=== PATIENT | female | born 1955 | race American Indian/Alaskan Native ===

== ENCOUNTER 2022-01-02 23:18 | Emergency (ER) | payer MEDICARE ==
[2022-01-03] MEDS ORDERED: ACETAMINOPHEN 325 MG TAB PO ONE (02:48)
--- NOTE | 2022-01-03 02:49 | Emergency Department Report ---
ED General Adult HPI - General Chief complaint: Pain General Stated complaint: Left foot/toe pain, muscle cramps, leg swelling Time Seen by Provider: 01/03/22 02:19 Source: patient Mode of arrival: Ambulatory Limitations: No Limitations - History of Present Illness Initial comments: This patient is a 66-year-old female, with a history of possible gout, hypertension, high cholesterol and renal insufficiency. Her plasterer maintenance is Dr. Singh. She had laboratory studies within the past month, and she reports that her "kidney function is a little bit worse." She reports that her plasterer maintenance has increased her diuretic dose. She presents to the ER today with a complaint of diffuse muscular cramping, lower extremity swelling, and left lateral fifth toe pain. She denies additional injuries and complaints. She ambulates at home with a cane, and four-point walker. She reports compliance with her medications -: days(s) Location: left, right, upper extremity, lower extremity Quality: aching, other (Cramping) Consistency: constant, intermittent (Left toe pain increases with palpation and range of motion. It decreases with rest) Improves with: other Worsens with: other - Related Data Previous Rx's Medication Instructions Recorded Last Taken Type Acetaminophen [Non-Aspirin Extra 650 mg PO Q6HR PRN #30 tablet 01/03/22 Unknown Rx Strength] Allergies Allergy/AdvReac Type Severity Reaction Status Date / Time Sulfa (Sulfonamide Allergy Unknown Verified 01/02/22 23:56 Antibiotics) ED Review of Systems ROS: Stated complaint: BODY CRAMPS/LT FOOT PAIN/RT LEG PAIN Other details as noted in HPI Constitutional: denies: fever Eyes: denies: eye discharge ENT: denies: epistaxis Respiratory: denies: cough Cardiovascular: edema Gastrointestinal: denies: abdominal pain Musculoskeletal: arthralgia, myalgia Neurological: denies: weakness ED Past Medical Hx - Medications Home Medications: Home Medications Medication Instructions Recorded Confirmed Last Taken Type Acetaminophen [Non-Aspirin Extra 650 mg PO Q6HR PRN #30 tablet 01/03/22 Unknown Rx Strength] ED Physical Exam - General Limitations: No Limitations General appearance: alert, in no apparent distress, obese - Head Head exam: Present: atraumatic, normocephalic - Eye Eye exam: Present: normal appearance, EOMI. Absent: nystagmus - ENT ENT exam: Present: normal exam, normal orophraynx, mucous membranes moist, normal external ear exam - Neck Neck exam: Present: normal inspection, full ROM. Absent: tenderness, meningismus - Respiratory Respiratory exam: Present: normal lung sounds bilaterally. Absent: respiratory distress, wheezes, rales, rhonchi, stridor, decreased breath sounds - Cardiovascular Cardiovascular Exam: Present: regular rate, normal rhythm, normal heart sounds. Absent: bradycardia, tachycardia, irregular rhythm, systolic murmur, diastolic murmur, rubs, gallop - GI/Abdominal GI/Abdominal exam: Present: soft. Absent: distended, tenderness, guarding, rebound, rigid, pulsatile mass - Extremities Exam Extremities exam: Present: normal inspection, full ROM, tenderness (There is iso lated left lateral fifth toe tenderness. There is no redness, pus or streaking), pedal edema (2+ edema in the bilateral lower extremities), other (There is no long bony tenderness. The muscular compartments are soft. The pelvis is stable). Absent: calf tenderness - Back Exam Back exam: Present: normal inspection. Absent: tenderness, CVA tenderness (R), CVA tenderness (L), muscle spasm, paraspinal tenderness, vertebral tenderness - Neurological Exam Neurological exam: Present: alert, oriented X3, normal gait, other (No facial droop. Tongue midline. Extraocular movements intact bilaterally. Facial sensation intact to light touch in V1, V2, V3 distribution bilaterally. 5 and a 5 strength in 4 extremities. Sensation intact to light touch in 4 extremities.). Absent: motor sensory deficit - Psychiatric Psychiatric exam: Present: normal affect, normal mood - Skin Skin exam: Present: warm, dry, intact, normal color. Absent: rash ED Course Vital Signs 01/02/22 23:36 Temperature 98.2 F Pulse Rate 81 Respiratory 18 Rate Blood Pressure 154/94 O2 Sat by Pulse 97 Oximetry ED Medical Decision Making - Lab Data Result diagrams: 01/03/22 02:57 Vital Signs 01/02/22 23:36 Temperature 98.2 F Pulse Rate 81 Respiratory 18 Rate Blood Pressure 154/94 O2 Sat by Pulse 97 Oximetry Lab Results 01/03/22 Range/Units 02:57 Sodium 138 (137-145) mmol/L Potassium 4.9 (3.6-5.0) mmol/L Chloride 101.8 (98-107) mmol/L Carbon Dioxide 23 (22-30) mmol/L Anion Gap 18 mmol/L BUN 44 H (7-17) mg/dL Creatinine 1.5 H (0.6-1.2) mg/dL Estimated GFR 42 ml/min BUN/Creatinine Ratio 29 % Glucose 163 H (65-100) mg/dL Calcium 9.3 (8.4-10.2) mg/dL Magnesium 1.90 (1.7-2.3) mg/dL Total Bilirubin 0.30 (0.1-1.2) mg/dL AST 22 (5-40) units/L ALT 21 (7-56) units/L Alkaline Phosphatase 102 (35-129) units/L Total Creatine Kinase 256 H (30-135) units/L Total Protein 7.7 (6.3-8.2) g/dL Albumin 4.1 (3.9-5) g/dL Albumin/Globulin Ratio 1.1 % - Radiology Data Radiology results: pending, report reviewed, image reviewed LEFT FIFTH TOE 3 VIEWS INDICATION / CLINICAL INFORMATION: left 5th toe pain. COMPARISON: None available. FINDINGS: BONES / JOINT(S): No acute fracture or subluxation. No significant arthritis. SOFT TISSUES: No significant abnormality. ADDITIONAL FINDINGS: None. IMPRESSION: 1. No acute findings. Signer Name: Rupesh Loja MD Signed: 01/03/2022 3:08 AM Workstation Name: [id number] - Medical Decision Making Differential diagnosis, including but not limited to: Elevated CK, renal insufficiency, hepatic insufficiency, arthritis, sprain, strain, dependent edema Assessment and plan: 66-year-old female, who was afebrile, with reassuring vital signs, presenting with left fifth toe pain, muscular cramps. She is currently taking diuretics. Lung sounds are clear, and she is not hypoxic. She has close outpatient follow-up with primary care and nephrology. She may continue her diuretics. Laboratory studies today unremarkable for emergent findings. She has a known history of renal insufficiency. CK not consistent with rhabdomyolysis X-ray of the left fifth toe shows no fracture or dislocation, and her examination is not consistent with cellulitis, abscess, or infectious pathology. Weightbearing as tolerated, Tylenol for pain, supportive footwear, shiloh tape to left fifth and fourth toe, outpatient follow-up. Does not appear to have an emergent medical condition present at this time. Critical care attestation.: If time is entered above; I have spent that time in minutes in the direct care of this critically ill patient, excluding procedure time. ED Disposition Clinical Impression: Muscle cramp, Toe pain, Dependent edema Disposition: HOME / SELF CARE / HOMELESS Is pt being admited?: No Does the pt Need Aspirin: No Condition: Good Additional Instructions: Please continue current outpatient medications. Patient may take the prescribed acetaminophen as needed for physical pain. Remain compliant with a low-salt diet, and with recommended water as prescribed by your primary care doctor or plasterer maintenance. Recommend that patient ambulate with supportive devices, such as four-point walker or cane. We also recommend that the patient wear appropriate supportive footwear, and avoid flip-flops, sandals, or slides. Please follow-up with your primary care doctor or plasterer maintenance within the next month. Please return to the emergency room right away with new pain, worsened pain, migration of pain, projectile vomiting, change in mental status, confusion, inability tolerate liquid feeds, new, worsened or different symptoms not present on the initial emergency room evaluation Referrals: [facility] [Provider Group] - 3-5 Days
[2022-01-03 03:43] LABS: Albumin 4.1 g/dL (3.9-5); Calcium 9.3 mg/dL (8.4-10.2)
--- NOTE | 2022-01-03 04:13 | XRay Report ---
LEFT FIFTH TOE 3 VIEWS INDICATION / CLINICAL INFORMATION: left 5th toe pain. COMPARISON: None available. FINDINGS: BONES / JOINT(S): No acute fracture or subluxation. No significant arthritis. SOFT TISSUES: No significant abnormality. ADDITIONAL FINDINGS: None. IMPRESSION: 1. No acute findings. Signer Name: Rupesh Loja MD Signed: 01/03/2022 4:08 AM Workstation Name: [email or web address]
[2022-01-03 05:18] VITALS: BP 157/95
== END 2022-01-03 05:18 | disposition home or self-care (01) ==
LOC: ED 23:18
DX: M79.675 Pain in left toe(s) (principal); R25.2 Cramp and spasm; R60.9 Edema, unspecified; Z88.2 Allergy status to sulfonamides
CPT/HCPCS: 36415; 80053; 82550; 83735; 99283

== ENCOUNTER 2022-03-21 08:46 | Emergency (ER) | payer MEDICARE ==
[2022-03-21 09:11] VITALS: BP 152/77
--- NOTE | 2022-03-21 10:07 | XRay Report ---
CHEST 2 VIEWS INDICATION / CLINICAL INFORMATION: sob. COMPARISON: None available. FINDINGS: SUPPORT DEVICES: None. HEART / MEDIASTINUM: No significant abnormality. LUNGS / PLEURA: No significant pulmonary or pleural abnormality. No pneumothorax. ADDITIONAL FINDINGS: No significant additional findings. IMPRESSION: 1. No acute findings. Signer Name: Joseph Brush MD Signed: 03/21/2022 10:02 AM Workstation Name: [id number]
[2022-03-21 14:11] LABS: Alanine Aminotransferase 14 units/L (7-56); Albumin 4.3 g/dL (3.9-5); BUN/Creatinine Ratio 24; Blood Urea Nitrogen 39 mg/dL (7-17); Calcium 9.8 mg/dL (8.4-10.2); Hemolysis Index 8
[2022-03-21 14:53] LABS: Hematocrit 37.7 % (30.3-42.9); Hemoglobin 12.1 gm/dl (10.1-14.3); Mean Corpuscular HGB Conc 32 % (30-34); Mean Corpuscular Volume 98 fl (79-97); Platelet Count 186 K/mm3 (140-440); Red Blood Count 3.87 M/mm3 (3.65-5.03); Red Cell Distribution Width 15.4 % (13.2-15.2)
--- NOTE | 2022-03-21 16:18 | Emergency Department Report ---
ED General Adult HPI - General Chief complaint: Dyspnea/Respdistress Stated complaint: REYES/LEGS SWOLLEN,MUCUS Time Seen by Provider: 03/21/22 16:07 Source: patient Mode of arrival: Ambulatory Limitations: No Limitations - History of Present Illness Initial comments: Patient is 66 years old female with history of hypertension, chronic kidney disease and gout. Patient presented to the ER complaining of cough, productive with greenish sputum for the last week associated with shortness of breath. Patient denied any chest pain. She also denied any fever or chills. Patient stated that her symptoms started with sore throat initially. She is also com plaining of bilateral lower extremity swelling and stated that she has been taking Lasix for that. - Related Data Previous Rx's Medication Instructions Recorded Last Taken Type Acetaminophen [Non-Aspirin Extra 650 mg PO Q6HR PRN #30 tablet 01/03/22 Unknown Rx Strength] Allergies Allergy/AdvReac Type Severity Reaction Status Date / Time Sulfa (Sulfonamide Allergy Unknown Verified 01/02/22 23:56 Antibiotics) ED Review of Systems ROS: Stated complaint: REYES/LEGS SWOLLEN,MUCUS Other details as noted in HPI Comment: All other systems reviewed and negative Constitutional: denies: chills, fever Respiratory: cough, shortness of breath. denies: orthopnea, wheezing Cardiovascular: denies: chest pain, palpitations Gastrointestinal: denies: abdominal pain, nausea, vomiting Neurological: denies: headache, weakness ED Past Medical Hx - Past Medical History Additional medical history: neuropathy, PVD, HTN, GOUT, high cholesterol, chronic back pain, kidney disease - Surgical History Additional Surgical History: bilateral knee replacement and back sx - Social History Smoking Status: Never Smoker - Medications Home Medications: Home Medications Medication Instructions Recorded Confirmed Last Taken Type Acetaminophen [Non-Aspirin Extra 650 mg PO Q6HR PRN #30 tablet 01/03/22 Unknown Rx Strength] ED Physical Exam - General Limitations: No Limitations General appearance: alert, in no apparent distress - Head Head exam: Present: atraumatic, normocephalic, normal inspection - Eye Eye exam: Present: normal appearance - ENT ENT exam: Present: normal exam, normal orophraynx, mucous membranes moist - Neck Neck exam: Present: normal inspection, full ROM. Absent: tenderness, meningismus - Respiratory Respiratory exam: Present: normal lung sounds bilaterally. Absent: respiratory distress, wheezes, rales, rhonchi - Cardiovascular Cardiovascular Exam: Present: regular rate, normal rhythm, normal heart sounds - GI/Abdominal GI/Abdominal exam: Present: soft, normal bowel sounds. Absent: distended, tenderness, guarding, rebound, rigid, organomegaly, mass, bruit, pulsatile mass - Extremities Exam Extremities exam: Present: pedal edema. Absent: calf tenderness - Back Exam Back exam: Present: normal inspection, full ROM. Absent: CVA tenderness (R), CVA tenderness (L) - Neurological Exam Neurological exam: Present: alert, oriented X3, CN II-XII intact, normal gait, reflexes normal. Absent: motor sensory deficit - Psychiatric Psychiatric exam: Present: normal mood - Skin Skin exam: Present: warm, intact, normal color ED Course Vital Signs 03/21/22 09:06 Temperature 97.9 F Pulse Rate 54 L Respiratory 20 Rate Blood Pressure 152/77 O2 Sat by Pulse 98 Oximetry ED Medical Decision Making - Lab Data Result diagrams: 03/21/22 12:52 03/21/22 12:52 - EKG Data -: EKG Interpreted by Wi EKG shows normal: sinus rhythm Rate: bradycardia - EKG Data Interpretation: no acute changes - Radiology Data Radiology results: report reviewed - Medical Decision Making Patient is 66 years old female with history of hypertension, chronic kidney disease and gout. Patient presented to the ER complaining of cough, productive with greenish sputum for the last week associated with shortness of breath. Patient denied any chest pain. She also denied any fever or chills. Patient stated that her symptoms started with sore throat initially. She is also complaining of bilateral lower extremity swelling and stated that she has been taking Lasix for that. Patient remained stable in the ER with a stable vital sign. Chest x-ray is unremarkable. Labs reviewed and is unremarkable to. Patient symptoms going well with acute bronchitis. Since patient's symptoms been going on for more than 10 days and having greenish sputum I will go ahead and start patient on amoxicillin and Robitussin-AC and advised patient to follow-up with her primary care physician in the next 2 to 3 days and to return to the ER if she develop any new symptoms. Critical care attestation.: If time is entered above; I have spent that time in minutes in the direct care of this critically ill patient, excluding procedure time. ED Disposition Clinical Impression: Acute bronchitis, Shortness of breath Disposition: HOME / SELF CARE / HOMELESS Is pt being admited?: No Condition: Stable Instructions: Acute Bronchitis (ED), Acute Bronchitis, Adult, [id number], Shortness of Breath, Adult, [id number] Referrals: PRIMARY CARE,MD [Primary Care Provider] - 3-5 Days
--- NOTE | 2022-03-24 18:42 | Electrocardiograph Report ---
[facility] Test Date: 2022-03-21 Test Time: 09:16:37 Pat Name: PURA BERKOWITZ Department: Room: Gender: F Etl Developer: HIMA : [id number] Requested By: ED DOC Order Number: [id number] Reading MD: Parth Castro Measurements Intervals [place] Rate: 66 P: 35 LA: 149 QRS: -13 QRSD: 82 T: -3 QT: 423 QTc: 443 Interpretive Statements Sinus arrhythmia Left ventricular hypertrophy No previous ECG available for comparison Electronically Signed On 03-24-2022 18:41:47 EDT by Parth Castro
== END 2022-03-21 16:40 | disposition home or self-care (01) ==
LOC: ED 08:46
DX: J20.9 Acute bronchitis, unspecified (principal); R06.02 Shortness of breath; Z88.2 Allergy status to sulfonamides
CPT/HCPCS: 36415; 71046; 80053; 83735; 83880; 84100; 84484; 85025; 93005; 99283